=== PATIENT | female | born 1995 | race Caucasian/White ===

== ENCOUNTER → 2020-12-24 03:20 | Outpatient (CLI) | payer OTHER, SELFPAY ==
[2020-12-24 18:10] LABS: SARS-CoV-2 RNA PCR Negative
== END ==
PROVIDERS: Visit Provider Obstetrics & Gynecology
DX: Z01.812 Encounter for preprocedural laboratory examination (principal); Z20.822 Contact with and (suspected) exposure to COVID-19
CPT/HCPCS: C9803; U0003; U0005

== ENCOUNTER 2020-12-27 00:16 | Day surgery (SDC) | payer OTHER, SELFPAY ==
[2020-12-22 09:46] VITALS: BMI 37.3
--- NOTE | 2020-12-22 10:15 | PC.NURSE ---
Addendum entered by Sultana Powell RN 12/22/20 17:13: Covid is 11-12 at 0840. Original Note: Report to the Outpatient Waiting Room, entrance under the green pavilion located off [facility], at time 1100 on date 12-27-20. OR Time: 1300. - You and your visitor will be asked a series of questions to screen for COVID 19 for your protection. - A mask is required within the hospital. - Only one visitor is allowed at this time. Patient visitors will be guided where to wait when not with patient. Preoperative COVID Testing Requirements: No COVID Test needed if: (proof is required; if not received patient will have Rapid Test prior to entry) - Patient has received COVID Vaccine at least 14 days prior to procedure date or - Patient has positive COVID test result within last 90 days of surgery date. COVID Test needed if above criteria is not met If not COVID vaccinated a COVID test must be conducted within 72 hours of surgery and patient is asked to isolate self from time of testing until procedure. You will go to the [facility] for your COVID testing. The [facility] is located at the corner of [address] [facility]. You will only be called if COVID results are positive and your surgeon may reschedule your elective surgery date. Patients may have clear liquids (water, carbonated beverages, clear teas, apple juice) until 3 hours prior to surgery with a maximum of 20 ounces. 1000 - No food from midnight until time of surgery - Infants may have breast milk until 4 hours before surgery, formula 6 hours prior to surgery. - Children will be allowed to drink immediately following surgery. If applicable, please bring a bottle or sippy cup to assist with drinking. Juice, water, soda, and popsicles are readily available. For infants on formula, please bring formula the day of surgery. Pacifiers are allowed. Take the following medications with a SIP of water the morning of surgery: control Medications to discontinue per physician N/A Date to take last dose N/A Please no make-up, nail algerian, hairspray, perfume, deodorant, or body powder the day of surgery. No jewelry (including any body piercings) or valuables the day of surgery, leave them at home. Please take a shower or bath the night before, or the morning of, surgery with an antibacterial soap. Wear comfortable, loose fitting clothing. Children are encouraged to wear pajamas. - Jewelry must be removed prior to entering the operating room. Rings and piercings that are not removed may be cut off. - The hospital will not accept responsibility for valuables. - Please leave all valuables, including medications, at home the day of surgery. If you are going home after surgery, a licensed petrol tanker driver must drive you home. - NO public transportation without another adult. - We recommend that an adult stay with you for 24 hours following discharge. - We also recommend that you do not drive, make important decision, drink alcoholic beverages, or take any drugs that were not prescribed by your health care provider for at least 24 hours after your discharge time. For Pediatric surgeries, we recommend two adults accompany the child home (only one inside the building at this time). Follow any additional instructions given to you from your surgeon. Telephone instructions given to Nicole Ford and asked if any additional questions and then verbalized understanding. Patient advised to call surgeon office or pre surgery nurse liaison [phone] if any additional questions.
[2020-12-27] VITALS (9 sets, daily range): BP systolic 102–124; BP diastolic 51–67; PULSE 49–66; RESP 14–20; TEMP 36.4–36.9; O2SAT 94–99
[2020-12-27] MEDS: LACTATED RINGERS 1,000 ML 30 ML IV CONT ×2 (11:37→14:31)
[2020-12-27] MEDS: ACETAMINOPHEN 500 MG TABLET 1000 MG PO (11:38)
[2020-12-27] MEDS: KETOROLAC 15 MG/ML VIAL (*BKC) IV PUSH (11:39)
--- NOTE | 2020-12-27 12:16 | P.PNAN_ITS ---
Anes - Initial Pre Proc Eval Procedure: Operation Date: 12/27/20 13:00 Proposed Procedures p Diagnostic Laparoscopy, Bilateral Salpingectomy - Belinda Regalado MD Date/Time: 12/27/20 12:16 Surgeon: Belinda Regalado MD Pre Op Diagnosis: desires sterilization Patient Data Age: 25 Gender: F Height: 1.69 m Weight: 102.9 kg Last Vital Signs Temp 36.9 C 12/27/20 11:49 Pulse 66 12/27/20 11:49 Resp 16 12/27/20 11:49 BP 121/58 L 12/27/20 11:49 Pulse Ox 99 12/27/20 11:49 Allergies Allergy/AdvReac Type Severity Reaction Status Date / Time Penicillins Allergy Intermediate Hives Verified 12/27/20 10:59 sulfamethoxazole Allergy Mild Vomiting Verified 12/27/20 10:59 [From Bactrim] trimethoprim [From Bactrim] Allergy Mild Vomiting Verified 12/27/20 10:59 Home Medications Medication Instructions Recorded Confirmed Type norgestimate-ethinyl estradiol 1 tablet PO DAILY 12/22/20 12/27/20 History [Sprintec (28)] Patient hx anesthesia problems: none Family hx anesthesia problems: none Results Review: All pre-operative results and documents have been reviewed as part of the pre-operative evaluation. [facility] Past Medical History Medical History (Updated 12/27/20 @ 12:17 by Alexander Washington MD) Anxiety Obesity Surgical History Surgical History (Updated 12/27/20 @ 12:17 by Alexander Washington MD) History of ankle surgery Social History Social History Smoking packs per day: 1 Smoking cigarettes per day: 20.0 Years smoked: 3 Smoking pack-years: 3.00 Smoking status: Former smoker Tobacco type: cigarettes Second hand tobacco smoke exposure: No Smoking end date: 02/12/17 Alcohol intake: current Alcohol use details: occasionally Substance use: never Substance use type: does not use Living arrangements: with family Spiritual care concerns: No Anes - Eval Final PreProcedure Day of Procedure 12/27/20 12:16 Patient weight: obese Heart: regular rate and rhythm Lungs: clear to auscultation Airway: Mallampati scale class II Neurological: alert and oriented Last oral intake: >/= 8 hours ASA classification: II Emergent: no Anesthetic plan: proceed Anesthesia type and monitoring: general ETT and standard monitoring Results Review: All pre-operative results and documents have been reviewed as part of the pre-operative evaluation. Informed Consent: The patient's anesthetic plan and its attendant risks and benefits were discussed with the patient/family/POA. Questions were solicited and answers provided to the satisfaction of the patient/family/POA.
--- NOTE | 2020-12-27 13:17 | P.HP_ITS ---
H&P: HPI History of Present Illness Date/Time: 12/27/20 13:17 Chief Complaint: Undesired fertility [facility] Past Medical History Medical History (Updated 12/27/20 @ 12:17 by Alexander Washington MD) Anxiety Obesity Surgical History Surgical History (Updated 12/27/20 @ 12:17 by Alexander Washington MD) History of ankle surgery Social History Social History Smoking packs per day: 1 Smoking cigarettes per day: 20.0 Years smoked: 3 Smoking pack-years: 3.00 Smoking status: Former smoker Tobacco type: cigarettes Second hand tobacco smoke exposure: No Smoking end date: 02/12/17 Alcohol intake: current Alcohol use details: occasionally Substance use: never Substance use type: does not use Living arrangements: with family Spiritual care concerns: No Meds Home Medications and Allergies Home Medications Medication Instructions Recorded Confirmed Type norgestimate-ethinyl estradiol 1 tablet PO DAILY 12/22/20 12/27/20 History [[place] (28)] Allergies Allergy/AdvReac Type Severity Reaction Status Date / Time Penicillins Allergy Intermediate Hives Verified 12/27/20 10:59 sulfamethoxazole Allergy Mild Vomiting Verified 12/27/20 10:59 [From Bactrim] trimethoprim [From Bactrim] Allergy Mild Vomiting Verified 12/27/20 10:59 Vital Signs Vital Signs - 24 hr 12/27/20 11:49 Temperature 36.9 C Pulse Rate 66 Respiratory Rate 16 Blood Pressure 121/58 L Pulse Oximetry 99 Exam HENMT: Head: normal to inspection Resp: Effort & Inspection: normal respiratory effort Cardio: Rate: regular rate Rhythm: regular rhythm GI: Inspection: normal to inspection GI Palp: Yes Soft to palpation Extrem: General: normal to inspection Assessment and Plan Additional Plan Undesired fertility. plan for Laproscopic bilateral salpingectomy. All risks benefits and alternative reviewed with patient
--- NOTE | 2020-12-27 13:18 | WPDHPUPDATE1 ---
History and Physical Update Update Date/Time: 12/27/20 13:18 History and Physical has been reviewed, including an updated exam of the patient. There are NO changes in the patient's condition. Risks, benefits, and alternatives have been discussed and questions answered. Patient agrees to proceed with procedure.
--- NOTE | 2020-12-27 13:26 | WPDHPUPDATE1 ---
History and Physical Update Update Date/Time: 12/27/20 13:26 History and Physical has been reviewed, including an updated exam of the patient. There are NO changes in the patient's condition. Risks, benefits, and alternatives have been discussed and questions answered. Patient agrees to proceed with procedure. We will do Laproscopic bilateral salpingectomy.
--- NOTE | 2020-12-27 14:30 | W.PM.PROC2 ---
Procedure Note - Detailed Date of Procedure 01/28/21 Pre-op Diagnosis desires sterilization Post-op Diagnosis same Procedure Performed Diagnostic laproscopy with bilateral salpingectomy Surgeon Belinda Regalado MD Anesthesia general Indications undesired fertility Findings nl pelvis Description of Procedure Pt was take to OR and placed in dorsal supine position. She underwent anasthesis and then was place in dorsal lithotomy and prepped and draped. Speculum was used to visualize cerivx and tenaculum was placed. Bladder was emptied. attention was turned abdominally. 5 mm infraumbilical incision was made and veress needle was inserted after tenting up abd wall. Opening pressure was 4 mmhg. abd was insulflated to 15 and 5 mm port was placed. Camera was used to verify intraabd placement and pt was placed into steep trendelenberg. [address] one suprapubically and one in LLQ. no difficulties and both placed under direct visulalizaton. Tubes both identified and followed out to fimbriated ends. Tubes cauterized and transected across mesosalpinx with ligasure. Both tubes removed through 5 mm port. no bleeding from either side noted. Ovaries and uterus normal. Gas released from abdomen and incisons closed with suture. All counts correct and all instruments removed from vagina. Estimated Blood Loss 10.0
[2020-12-27] MEDS: ONDANSETRON INJ 4 MG/2 ML VIAL IV PUSH (14:53)
[2020-12-27] MEDS: fentaNYL CITRATE INJ (*CRX) 100 MCG/2 ML VIAL 25 MCG IV PUSH (15:28)
[2020-12-27] MEDS: diphenhydrAMINE HCl INJ 50 MG/ML VIAL 25 MG IV PUSH (16:00)
[2020-12-27] MEDS: SCOPOLAMINE 1.5 MG PATCH TRANSDERM (16:03)
== END 2020-12-27 16:48 | disposition home or self-care (01) ==
PROVIDERS: PCP Family Medicine; Visit Provider Obstetrics & Gynecology
PROC: (CPT 49320; principal; 2020-12-27 13:00)
DX: Z30.2 Encounter for sterilization (principal); Z87.891 Personal history of nicotine dependence; E66.9 Obesity, unspecified; Z68.36 Body mass index [BMI] 36.0-36.9, adult
CPT/HCPCS: 58661; 88302; A9270; J0330; J1100; J1170; J1200; J1885; J2250; J2405; J2704; J2710; J3010; J7120